=== PATIENT | female | born 2000 | race Caucasian/White ===

== ENCOUNTER 2024-07-03 10:06 | Emergency (ER) | payer SELFPAY ==
[2024-07-03 10:09] VITALS: BP 135/98
[2024-07-03 10:41] LABS: Urine Albumin 1+ (Neg - Trace); Urine Bilirubin Negative (Negative); Urine Character Slightly Cloudy (Clear); Urine Color Yellow; Urine Glucose Negative (Negative); Urine Ketone Negative (Negative); Urine Leukocyte Trace (Negative); Urine Nitrite Negative (Negative); Urine Occult Blood 4+ (Negative); Urine Specific Gravity 1.025 (<1.030); Urine Urobilinogen Negative (Neg - 1+)
--- NOTE | 2024-07-03 11:19 | ED.GENMED ---
History of Present Illness
General
Chief Complaint: Abdominal Symptoms
Time Seen by Provider: 07/03/24 10:39
History of Present Illness
History of Present Illness:
Patient is a 23-year-old female with no reported chronic medical problems here today for evaluation of left flank/groin pain. Patient states she has had intermittent pain over the past couple of days but became more pronounced last night/this
morning. She also endorses nausea and vomiting. She reported prior history of kidney stones x 1 when she was with her child. No fevers. She has been urinating small amounts but denies hematuria. No vaginal symptoms. At the time of my
evaluation patient states just prior she developed sudden onset of complete resolution of her symptoms. She is currently pain-free. She believes she may have passed a kidney stone.
Review of Systems
Review of Systems
All Other Systems: ROS reviewed and negative except as documented in HPI and ROS
Phy Exam
Physical Exam
Physical Exam:
GENERAL: Alert , in no apparent distress
EYE: pupils equal and reactive
NECK: Supple
ENT: o/p clr, mmm.
CARDIAC: Regular rate and rhythm .
LUNGS: Clear breath sounds bilaterally, no acute respiratory distress, no wheezes/rales/rhonchi
ABDOMEN: Soft, without focal tenderness, no r/g, no cvat
NEUROLOGICAL: Alert and oriented, no focal neuro deficits
SKIN: Warm and dry, skin intact.
MUSCULOSKELETAL: No edema, well perfused.
PSYCH: Normal and appropriate interaction.
Course
Orders/Labs/Results
Orders:
Orders
07/03/24 10:21
HCG, Urine Qualitative Screen Urgent
Date Specimen was Collected: 07/03/24
Time Specimen was Collected: 10:18
Comment: ADD ON
Urinalysis Reflex To Culture Urgent
Date Specimen was Collected: 07/03/24
Time Specimen was Collected: 10:18
Urine Microscopic Reflex Cult Urgent
Urine Culture Urgent
ELISABET Source: U
Specimen Description:
Date Specimen was Collected: 07/03/24
Time Specimen was Collected: 10:18
07/03/24 11:18
Test Result ONCE
07/03/24 11:19
Add On- LAB Urgent
Tests Added?: HCG Urine Qualitative Screen
Abnormal Lab Results
07/03/24
10:21
Ur Occult Blood Reflex 4+ A
(Negative)
Leukocyte Esterase Rfl Trace A
(Negative)
Urine RBC >100 A /HPF
(0-2)
Urine Bacteria (Reflex) Many A
(Negative)
Urine Albumin (Reflex) 1+ A
(Neg - Trace)
Vital Signs
Initial and Last Documented VS:
Initial Vital Signs
Temp Pulse Resp BP Pulse Ox
98.6 F 72 16 135/98 98
07/03/24 10:09 07/03/24 10:09 07/03/24 10:09 07/03/24 10:09 07/03/24 10:09
Last Documented Vital Signs
Temp Pulse Resp BP Pulse Ox
98.6 F 72 16 135/98 98
07/03/24 10:09 07/03/24 10:09 07/03/24 10:09 07/03/24 10:09 07/03/24 10:09
MDM/Problems Addressed
Differential Diagnosis Includes:
Patient is a 23-year-old female with no reported chronic medical problems here today for evaluation of left flank/groin pain. Overall, patient appears very well. Vital signs remarkable for a mildly elevated blood pressure. Physical examination
described above. Patient is currently pain-free. Abdomen soft/nontender. No CVA tenderness. Patient well-appearing. We will begin with urinalysis and urine test.
07/03/2024 12:21: Urinalysis reveals hematuria. There is many bacteria but significant squamous epithelium consistent with contamination. test negative. Discussed performing additional testing including blood work and imaging but the
patient declined. Her symptoms/findings at this time appear consistent with a recently passed kidney stone. If imaging were to be performed and confirmed this, management would not change. Patient is currently pain-free. She is able to tolerate
p.o. No vomiting. Urine not consistent with infection. Will recommend supportive measures and close follow-up with urology. Return precautions given. All questions answered. Stable for discharge.
*Critical Care Note
Total Time (30-74mins, 75-104mins- exclusive of procedures): Not Applicable
ED Attending Note
-
Portions of this chart may have been created with voice recognition software.� Occasional wrong word or��sound alike� substitutions may have occurred due to the inherent limitations of voice recognition software.
Discharge Plan
Departure
Patient Disposition: Home (Routine Discharge)
Date of Disposition: 07/03/24
Time of Disposition: 12:16
Patient with high blood pressure during this ER visit?: Yes
Condition: Good
Covid-19: Not Applicable
Discharge Problem:
Acute left flank pain, Hematuria
Instructions: Kidney Stone, Adult ED
Prescriptions:
No Action
ibuprofen 400 MG tablet
400 mg PO Q6HPRN PRN (Reason: pain with food) Qty: 30 0RF
Referrals:
Sarmad Hernandes MD [Active] - Follow up in 1 week
NONE,* [Family Provider] -
Activity Restrictions/Additional Instructions:
Your symptoms today appear consistent with a recently passed kidney stone.
Drink plenty of fluids.
Follow-up with a urologist within the next 7 to 10 days for close reevaluation.
Return for any new, worsening, or concerning symptoms.
Interventions
Interventions:
*Risk Screen - Suicide Last Done: 07/03/24 10:11
*General Assessment Last Done: 07/03/24 12:21
*Neglect/Abuse Screening Last Done: 07/03/24 10:11
*ED COVID-19 Vaccine History Last Done: 07/03/24 12:21
IT-Nfywnu-Zcfvyffkvq Assessment Last Done: 07/03/24 12:21
Discharge Date and Time
Print Language: CITIZEN [place]
[2024-07-03 11:31] LABS: Urine Mucus Many; Urine Squamous Cell >30 /LPF (Few)
[2024-07-03 11:34] LABS: Urine Amorphous Seen; Urine Bacteria Many (Negative); Urine Red Blood Cell >100 /HPF (0-2)
[2024-07-03 11:52] LABS: HCG, Urine Qualitative Screen Negative
== END 2024-07-03 12:27 | disposition home or self-care (01) ==
LOC: EMR 10:06
PROVIDERS: Emergency Medicine; EMERGENCY PHYSICIAN Emergency Medicine
DX: R10.32 Left lower quadrant pain (principal); R31.9 Hematuria, unspecified; Z87.442 Personal history of urinary calculi
CPT/HCPCS: 99282; 81003; 81015; 81025; 87086